=== PATIENT | male | born 1965 | race Caucasian/White ===

== ENCOUNTER → 2018-09-22 11:32 | Outpatient (CLI) | payer SELFPAY ==
--- NOTE | 2018-09-22 11:38 | RAD_ITS ---
STUDY: X-RAY - RIGHT KNEE REASON FOR EXAM: Male, 53 years old. Pain and swelling following a fall. TECHNIQUE: 4 view(s) of the knee. COMPARISON: None. FINDINGS: Normal visualized distal femur. Normal visualized proximal tibia and fibula. Normal proximal tibiofibular articulation. 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 Normal lateral femorotibial compartment. Normal patellofemoral articulation. Prepatellar soft tissue swelling. RAD/Knee 4 or More Views IMPRESSION: Prepatellar soft tissue swelling. Electronically Signed: Huan Brasher MD at 12:27 EST Tel [phone], Service support ,
--- OUTSIDE RECORDS SUMMARY | 2018-11-04 03:29 | XMS RPT_ITS ---
:1965 Author Organization [facility] Care Team Providers Name Role Phone MARY GRESHAM, LILIAN Le Attending Unavailable Gabriela Crowder Attending Unavailable Gabriela Crowder Referring Unavailable July Arnett Primary Care Unavailable Aniket Prakash PA-C Attending Unavailable Aniket Prakash PA-C Referring Unavailable July Arnett Primary Care Unavailable PROBLEMS PROBLEMS DATE TYPE CONDITION / CODE ATTENDING STATUS SOURCE 09/22/2018 Unknown M25.561 - Pain Gabriela Crowder Active Jayda in right knee / Community M25.561(ICD-10) Hospital Repository PROCEDURES PROCEDURES No Procedure Records FoundRESULTS RESULTS Observed: 10/06/2018 Status: F Source: [facility] 11:49 AM FOUNDATION REPOSITORY . MICRO - Microbiology PROCEDURE: Culture Tissue [*1] SOURCE: Tissue BODY SITE: Knee R COLLECTED DATE/TIME: 10/06/2018 11:49 EST RECEIVED DATE/TIME: 10/06/2018 20:42 EST START DATE/TIME: 10/06/2018 20:42 EST FREE TEXT SOURCE: DEEP BURSA FINAL REPORTS Final Report [] Verified Date/Time/Personnel: 10/10/2018 09:14 EST From liquid media only Enterobacter amnigenus No anaerobes isolated at 96 hours. PRELIMINARY REPORTS Preliminary Report [] Verified Date/Time/Personnel: 10/09/2018 14:43 EST From liquid media only Gram Negative Rods Final identification and VALERIO to follow. Preliminary Report [] Verified Date/Time/Personnel: 10/07/2018 12:22 EST No growth to date STAINS GS [] Verified Date/Time/Personnel: 10/06/2018 23:56 EST Rare Epithelial cells Rare Mononuclear cells 2+ Polymorphonuclear cells No organisms seen. SUSCEPTIBILITY RESULTS Enterobacter amnigenus Antibiotic VALERIO Dilutn VALERIO Interp Amoxicillin/ <=8/4 Susceptible Clavulanate Ampicillin <=8 Susceptible Cefazolin 16 Intermediate Cefotaxime <=2 Susceptible Cefuroxime 8 Susceptible Ciprofloxacin <=1 Susceptible Gentamicin <=4 Susceptible Levofloxacin <=2 Susceptible Meropenem <=1 Susceptible Piperacillin/ <=16 Susceptible Tazobactam Trimethoprim/ <=2/38 Susceptible Sulfa Performing Locations *1: This test was performed at: [address], [address] [place] [address] Performed By: #### [facility] #### [place] [address] Observed: 10/06/2018 Status: F Source: [facility] 11:49 AM FOUNDATION REPOSITORY . MICRO - Microbiology PROCEDURE: Culture Tissue [*1] SOURCE: Tissue BODY SITE: Knee R COLLECTED DATE/TIME: 10/06/2018 11:49 EST RECEIVED DATE/TIME: 10/06/2018 20:42 EST START DATE/TIME: 10/06/2018 20:42 EST FREE TEXT SOURCE: SINUS TRACT FINAL REPORTS Final Report [] Verified Date/Time/Personnel: 10/10/2018 07:37 EST No aerobes or anaerobes isolated at 96 hours. PRELIMINARY REPORTS Preliminary Report [] Verified Date/Time/Personnel: 10/07/2018 12:20 EST No growth to date STAINS GS [] Verified Date/Time/Personnel: 10/07/2018 00:01 EST 1+ Mononuclear cells Rare Epithelial cells No organisms seen. Performing Locations *1: This test was performed at: [facility], [address] [place] [address], [address] , [facility] Performed By: #### CTISS #### [address] [address] Observed: 09/25/2018 Status: F Source: [place] CULTURE, WOUND 10:11 AM [facility] REPOSITORY Gram Stain Gram Stain 3+ White Blood Cells No organisms seen Wound Culture ORGANISM 1: Enterobacter amnigenus 2 Amount Growth Rare Enterobacter amnigenus 2: REACTION Amoxacillin/Clavulanic Acid $ 4 S Cefazolin $ 8 S Cefepime $ <=1 S Ceftriaxone $ <=1 S Ciprofloxacin $ <=0.25 S Ertapenim $$$ <=0.5 S Gentamicin $ <=1 S Imipenem *NF <=0.25 S Levofloxacin $ <=0.12 S Piperacillin/Tazobactam $$ <=4 S Tobramycin $ <=1 S Trimethoprim/Sulfametho $ <=20 S (NF) indicates non-formulary drug at [facility]. Approval by Infectious Disease Specialist required before non-formulary drugs may be ordered and/or dispensed. Performed By: #### M100.1400 #### [facility] [address] [facility] [place], [address] KNEE 4 OR MORE Observed: 09/22/2018 Status: F Source: [place]MM[place] VIEWS 11:38 AM [facility] REPOSITORY [facility] Imaging Services [address] [place] [address] Knee 4 or More Views MR#: [id number] Acct: [id number] Name: JOSE RAMON MCKENZIE Rep #: [id number] : 1965 M 53 From: Huan Brasher MD PCP: July Arnett MD Status: REG CLI Study: Knee 4 or More Views Date of Exam: 09/22/18 Exam# [id number] Ordering Dr: Gabriela Crowder STUDY: X-RAY - RIGHT KNEE REASON FOR EXAM: Male, 53 years old. Pain and swelling following a fall. TECHNIQUE: 4 view(s) of the knee. COMPARISON: None. FINDINGS: Normal visualized distal femur. Normal visualized proximal tibia and fibula. Normal proximal tibiofibular articulation. 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 Normal lateral femorotibial compartment. Normal patellofemoral articulation. Prepatellar soft tissue swelling. RAD/Knee 4 or More Views IMPRESSION: Prepatellar soft tissue swelling. Electronically Signed: Huan Brasher MD at 12:27 EST Tel [phone], Service support , CC: ROHIT Crowder; July Arnett MD Computer Systems Analyst: Signed ALLERGIES ALLERGIES DATE TYPE / CODE NAME / CODE REACTION SEVERITY SOURCE 11/02/2015 Drug No Known Unknown [facility] Allergy/4160 Allergies/F00 [facility] [address](SNOMED 6556459(RXNOR Repository CT) M) ENCOUNTERS ENCOUNTERS ADMIT/DISCHARGE ACCOUNT NUMBER ADMITTING ENCOUNTER LOCATION SOURCE CLASS 10/06/2018/10/06/20 [id number] Ambulatory BBuilding:OS [place] 18 DURoom: Health 0001Bed: E Foundation Repository 09/25/2018 [id number] Ambulatory [facility] ding:LABSPEC Repository 09/22/2018 [id number] [facility] ding:MTRAD Repository PAYERS PAYERS ENCOUNTER GUARANTOR PAYER SUBSCRIBER SOURCE 10/06/2018 JOSE RAMON Chel [facility] WELLERTDOB: Insurance:QASIM WELLERTDOB: [facility] [id number] INSCOPolicy Number: [id number] Repository [facility] [id number] [address] [place] [address] Date:2018-10-05 [place], [place] [id number]: [phone]) 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 Number: [id number] [id number] Repository [address]Uxt: (503) Date:7183-26-74UR [phone] () [id number], [place] [address]OS: 09/25/2018 Secondary NOT GIVENUNK [place] Insurance:SELF PAY [facility] Number: Effective Repository Date:2018-09-25 09/22/2018 Jose Ramon Milligan Primary NOT GIVENUNK [place] [id number] Insurance:SELF PAY [place], [place] Number: Effective Repository [id number]: ([phone]) Date:2018-09-22 [phone] ()
== END ==
PROVIDERS: Family Provider Family Medicine; PCP Family Medicine; Referring Provider Nurse Practitioner Adult Health; Visit Provider Nurse Practitioner Adult Health
DX: M25.561 Pain in right knee (principal)
CPT/HCPCS: 73564

== ENCOUNTER → 2018-09-25 10:56 | Outpatient (CLI) | payer OTHER, SELFPAY ==
[2015-11-02 09:26] VITALS: BMI 27.6
--- OUTSIDE RECORDS SUMMARY | 2018-11-20 09:15 | XMS RPT_ITS ---
[...] FoundRESULTS RESULTS Observed: 10/06/2018 Status: F Source: [facility] 11:49 AM FOUNDATION REPOSITORY . MICRO - [...] Locations *1: This test was performed at: [address], [address] [place] [address] Performed By: #### [facility] #### [place] [address] Observed: 10/06/2018 Status: F Source: [facility] 11:49 AM FOUNDATION REPOSITORY . MICRO - [...] Locations *1: This test was performed at: [facility], [address] [place] [address], [address] , [facility] Performed By: #### CTISS #### [address] [address] Observed: 09/25/2018 Status: F Source: [place] CULTURE, WOUND 10:11 AM [facility] Gram Stain Gram Stain 3+ White [...] <=20 S (NF) indicates non-formulary drug at [facility]. Approval by Infectious Disease Specialist required before non-formulary drugs may be ordered and/or dispensed. Performed By: #### M100.1400 #### [facility] [address] [facility] [place], [address] KNEE 4 OR MORE Observed: 09/22/2018 Status: F Source: [place] VIEWS 11:38 AM [facility] Imaging Services [address] [place] [address] Knee 4 or More Views MR#: [id number] Acct: [id number] Name: JOSE RAMON MCKENZIE Rep #: [id number] : 1965 M 53 From: Huan Brasher MD PCP: July Arnett MD Status: REG CLI Study: Knee 4 or More Views Date of Exam: 09/22/18 Exam# [id number] Ordering Dr: Gabriela Crowder STUDY: X-RAY - [...] Huan Brasher MD at 12:27 EST Tel [phone], Service support , CC: ROHIT Crowder; July Arnett MD Criminal Research Specialist: Signed ALLERGIES ALLERGIES DATE TYPE / CODE NAME / CODE REACTION SEVERITY SOURCE 11/02/2015 Drug No Known Unknown [facility] Allergy/4160 Allergies/F00 [facility] [address](SNOMED 7016071(RXNOR Repository CT) M) ENCOUNTERS ENCOUNTERS ADMIT/DISCHARGE ACCOUNT NUMBER ADMITTING ENCOUNTER LOCATION SOURCE CLASS 10/06/2018/10/06/20 [id number] Ambulatory BBuilding:OS [address] DURoom: Health 0001Bed: E Foundation Repository 09/25/2018 [id number] Ambulatory [facility] ding:LABSPEC Repository 09/22/2018 [id number] [facility] ding:MTRAD Repository PAYERS PAYERS ENCOUNTER GUARANTOR PAYER SUBSCRIBER SOURCE 10/06/2018 JOSE RAMON Chel [facility] WELLERTDOB: Insurance:QASIM WELLERTDOB: [facility] [id number] INSCOPolicy Number: [id number] Repository [facility] [id number] [address] [place] [address] Date:2018-10-05 [place], [place] [id number]: (000) 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 [address] () [id number], [place] [address]YT: 09/25/2018 JOSE RAMON [facility] Primary CHRISTIANA [place] [id number] Insurance:CIGNAPolicy WELLERTDOB: [facility] Number: [id number], [place] [id number] Repository [address]Egg: (155) Date:9540-69-18NN [phone] () [id number], [place] [address]VM: 09/25/2018 Secondary NOT GIVENUNK [place] Insurance:SELF PAY [facility] Number: Effective Repository Date:2018-09-25 09/22/2018 Jose Ramon Milligan Primary NOT GIVENUNK [place] [id number] Insurance:SELF PAY [place] Number: Effective Repository [id number]: (330) Date:2018-09-22 [phone] ()
== END ==
PROVIDERS: Family Provider Family Medicine; PCP Family Medicine; Referring Provider Physician Assistant Surgical; Visit Provider Physician Assistant Surgical
DX: M25.461 Effusion, right knee (principal)
CPT/HCPCS: 87070; 87077; 87186; 87205

== ENCOUNTER → 2018-12-01 15:25 | Outpatient (CLI) | payer OTHER, SELFPAY ==
[2018-12-01 17:42] LABS: Anion Gap 11 (5-15); BUN 14 mg/dL (7-18); BUN/Creat Ratio 15.9 RATIO (10-20); Calcium,Total 8.7 mg/dL (8.5-10.1); Chloride 107 mmol/L (98-107); Cholesterol 246 mg/dL (200); Creatinine, Serum 0.88 mg/dL (0.70-1.30); EST Glomerular Filtration Rate 96 mL/min (>60); Est Glom Filt Rate - Afr Amer 116 mL/min (>60); Glucose 104 mg/dL (74-106); High Density Lipoprotein 44 mg/dL; Sodium Level 142 mmol/L (136-145); Triglycerides 209 mg/dL; Very Low Density Lipoprotein 42 mg/dL (5-40)
== END ==
PROVIDERS: Family Provider Family Medicine; PCP Family Medicine; Visit Provider Family Medicine
DX: Z00.00 Encounter for general adult medical examination without abnormal findings (principal); E78.00 Pure hypercholesterolemia, unspecified
CPT/HCPCS: 36415; 80048; 80061

== ENCOUNTER → 2020-12-07 | Outpatient (CLI) | payer OTHER, SELFPAY ==
[2015-11-02 09:26] VITALS: BMI 27.6
== END | disposition home or self-care (01) ==
PROVIDERS: PCP Family Medicine; Referring Provider Family Medicine; Visit Provider Family Medicine
DX: B34.9 Viral infection, unspecified (principal)
CPT/HCPCS: 87635; U0005; U0003

== ENCOUNTER → 2025-09-29 | Outpatient (CLI) | payer BC, OTHER, SELFPAY ==
--- OUTSIDE RECORDS SUMMARY | 2025-09-29 07:14 | XMS RPT_ITS | CCD ---
Author Organization [facility] ion Partnership [facility] Care Team Providers Care Credit Product Analyst Name Role Phone LILIAN HERNANDEZ Unavailable Unavailable Results Test Name Value Interpretation Reference Range [facility] . MICRO - Microbiolo gyPROCEDURE: Culture Tissue [*1] Tissue BODY SITE: Knee RCOLLECTED DATE/TIME: 10/06/2018 11:49 EST RECEIVED DATE/TIME: 10/06/2018 20:42 ESTSTART DATE/TIME: 10/06/2018 20:42 EST FREE TEXT SOURCE: DEEP BURSAFINAL REPORTSFinal Report []Verified Date/Time/Personnel: 10/10/2018 09:14 ESTFrom liquid media onlyEnterobacter amnigenusNo anaerobes isolated at 96 hours.PRELIMINARY REPORTSPreliminary Report []Verified Date/Time/Personnel: 10/09/2018 14:43 ESTFrom liquid media onlyGram Negative RodsFinal identification and VALERIO to follow.Preliminary Report []Verified Date/Time/Personnel: 10/07/2018 12:22 ESTNo growth to dateSTAINSGS []Verified Date/Time/Personnel: 10/06/2018 23:56 ESTRare Epithelial cellsRare Mononuclear cells2+ Polymorphonuclear cellsNo organisms seen.SUSCEPTIBILITY RESULTS Enterobacter amnigenusAntibiotic VALERIO Dilutn VALERIO InterpAmoxicillin/ <=8/4 SusceptibleClavulanateAmpicillin <=8 SusceptibleCefazolin 16 IntermediateCefotaxime <=2 SusceptibleCefuroxime 8 SusceptibleCiprofloxacin <=1 SusceptibleGentamicin <=4 SusceptibleLevofloxacin <=2 SusceptibleMeropenem <=1 SusceptiblePiperacillin/ <=16 SusceptibleTazobactamTrimethoprim/ <=2/38 SusceptibleSulfaPerforming Locations*1: This test was performed at: [facility], [address] [place] [address], [id number]- , [facility] ([place]) Comment on above: Performed By: #### CTISS ####[facility] [place] [address] Protein mass conc . MICRO - MicrobiologyPROCEDURE: Culture Tissue [*1] Tissue BODY SITE: Knee RCOLLECTED DATE/TIME: 10/06/2018 11:49 EST RECEIVED DATE/TIME: 10/06/2018 20:42 ESTSTART DATE/TIME: 10/06/2018 20:42 EST FREE TEXT SOURCE: SINUS TRACTFINAL REPORTSFinal Report []Verified Date/Time/Personnel: 10/10/2018 07:37 ESTNo aerobes or anaerobes isolated at 96 hours.PRELIMINARY REPORTSPreliminary Report []Verified Date/Time/Personnel: 10/07/2018 12:20 ESTNo growth to dateSTAINSGS []Verified Date/Time/Personnel: 10/07/2018 00:01 EST1+ Mononuclear cellsRare Epithelial cellsNo organisms seen.Performing Locations*1: This test was performed at: [facility], [address] [place] [address], [facility] , [facility] ([place]) Comment on above: Performed By: #### CTISS ####[place] [place] [address] Encounters Encounter Date Encounter Type Care Provider Facility Start: 10-06-2018 End: 10-06-2018 Patient encounter procedure LILIAN HERNANDEZ Facility:B Payers Date Payer Category Payer Private Health Insurance [id number] 1965 Unknown [id number] Summary Purpose Family History No Family History Records Found Advance Directives No Advanced Directives Records Found Additional Source Comments (unrecognized sect ion and content) No Status Records Found INFORMATION SOURCE (unrecogn ized section and content) DATE CREATED AUTHOR 10/12/2018 [facility] ([place]) FOR RECORDS PERTAINING TO PATIENTS WHO ARE OR HAVE BEEN ENROLLED IN A CHEMICAL DEPENDENCY/SUBSTANCEABUSE PROGRAM, SOME INFORMATION MAY BE OMITTED. This clinical summary was aggregated from multiple sources. Caution should be exercised in using it in the provision of clinical care. This summary normalizes information from multiple sources, and as a consequence, information in this document may materially change the coding, format and clinical context of patient data. In addition, data may be omitted in some cases. CLINICAL DECISIONS SHOULD BE BASED ON THE PRIMARY CLINICAL RECORDS. [facility] [employer] [facility]. provides no warranty or guarantee of the accuracy or completeness of information in this document.
[2025-09-29 10:04] LABS: Hematocrit 45.2 % (40-54); Hemoglobin 14.7 g/dL (13.0-16.5); Immature Granulocytes Count 0.060 X10^3/uL (0.0-0.0); Mean Corp Hgb Conc 32.5 g/dL (32-36); Mean Corpuscular Volume 84.2 fL (80-94); Mean Platelet Vol. 9.9 fl (6.2-12.0); NRBC Flagged by Analyzer 0 % (0-5); Platelet Count 341 K/mm3 (150-450); RBC Distribution Width CV 13.0 % (11.6-14.6); RBC Distribution Width SD 39.9 fl (35.1-43.9); Red Blood Count 5.37 M/mm3 (4.6-6.2); White Blood Count 8.3 K/mm3 (4.4-11.0)
[2025-09-29 10:48] LABS: AST(SGOT) 18 U/L (<=37); Alanine Aminotransfer ALT/SGPT 33 U/L (<=46); Albumin, Serum 4.2 g/dL (3.4-4.8); Alkaline Phosphatase 65 U/L (40-129); Anion Gap 11 (5-15); BUN 16 mg/dL (4-19); BUN/Creat Ratio 18.4 RATIO (10-20); Calcium,Total 9.4 mg/dL (7.6-11.0); Carbon Dioxide 23.6 mmol/L (21.0-32.0); Chloride 106 mmol/L (98-108); Cholesterol 292 mg/dL (<=200); Globulin 2.6 g/dL (2.2-4.2); Glucose 125 mg/dL (70-99); Low Density Lipoprotein Calc. 214 mg/dL; PSA,Total - Annual Screen 1.82 ng/mL (0.02-4.00); Potassium 4.1 mmol/L (3.3-5.1); Triglycerides 181 mg/dL; Very Low Density Lipoprotein 36 mg/dL (5-40); Vitamin D,25 Hydroxy 32.8 ng/mL (30-100); cholesterol:hdl ratio screen 6.74
== END | disposition home or self-care (01) ==
LOC: MTLAB 07:12
PROVIDERS: PCP Family Medicine; Referring Provider Family Medicine; Visit Provider Family Medicine
DX: Z00.00 Encounter for general adult medical examination without abnormal findings (principal); Z13.220 Encounter for screening for lipoid disorders; R73.9 Hyperglycemia, unspecified; Z12.4 Encounter for screening for malignant neoplasm of cervix
CPT/HCPCS: 36415; 80053; 80061; 82306; 83036; 84153; 84443; 85025; G0103